=== PATIENT | female | born 1965 | race Caucasian/White ===

== ENCOUNTER → 2016-10-03 | Outpatient (CLI) | payer BC, OTHER | LOC: ECHO 11:17 | DX: C50.412 Malignant neoplasm of upper-outer quadrant of left female breast (principal); I34.0 Nonrheumatic mitral (valve) insufficiency; I07.1 Rheumatic tricuspid insufficiency; I27.2 Other secondary pulmonary hypertension | CPT/HCPCS: ECHO; 93306 ==

== ENCOUNTER → 2016-11-19 | Outpatient (CLI) | payer OTHER ==
[2016-11-19 14:48] LABS: HEMOGLOBIN 13.6 gm/dl (12.3-15.3); RED BLOOD COUNT 4.35 M/UL (4.00-5.10)
[2016-11-19 15:08] LABS: WHITE BLOOD COUNT 1.3 K/UL (4.5-11.0)
[2016-11-19 15:39] LABS: BUN/CREATININE RATIO 22 (0-10)
== END ==
LOC: LAB 13:50
PROVIDERS: Internal Medicine Hematology & Oncology
DX: C50.412 Malignant neoplasm of upper-outer quadrant of left female breast (principal); K76.9 Liver disease, unspecified; I51.9 Heart disease, unspecified; Z71.6 Tobacco abuse counseling
CPT/HCPCS: 36415; 80053; 85025

== ENCOUNTER 2016-11-20 14:40 | Emergency (ER) | payer OTHER ==
[2016-11-20 16:25] LABS: HEMOGLOBIN 14.8 gm/dl (12.3-15.3); RED BLOOD COUNT 4.75 M/UL (4.00-5.10)
[2016-11-20 16:40] LABS: BUN/CREATININE RATIO 18 (0-10)
[2016-11-20 16:41] LABS: WHITE BLOOD COUNT 3.1 K/UL (4.5-11.0)
== END 2016-11-20 20:57 | disposition home or self-care (01) ==
LOC: ER1 14:40
PROVIDERS: Emergency Medicine
DX: J40 Bronchitis, not specified as acute or chronic (principal); D72.819 Decreased white blood cell count, unspecified; D69.6 Thrombocytopenia, unspecified; F17.210 Nicotine dependence, cigarettes, uncomplicated; Z85.3 Personal history of malignant neoplasm of breast
CPT/HCPCS: 36415; 71010; 80053; 81001; 82550; 82553; 83874; 84484; 85025; 93005; 94664; 99285

== ENCOUNTER → 2020-11-29 | Outpatient (CLI) | payer OTHER ==
[~2020-11-29] MED LIST: BUSPIRONE HCL5 MG PO; IBUPROFEN600 MG PO; MOBIC15 MG PO
[2020-11-29 13:03] LABS: HEMOGLOBIN 14.3 gm/dl (12.3-15.3); RED BLOOD COUNT 4.6 M/UL (4.00-5.10); WHITE BLOOD COUNT 3.5 K/UL (4.5-11.0)
[2020-11-29 13:26] LABS: BUN/CREATININE RATIO 14 (0-10)
== END ==
LOC: LAB 12:03
PROVIDERS: Internal Medicine Gastroenterology
DX: D64.9 Anemia, unspecified (principal); K76.0 Fatty (change of) liver, not elsewhere classified; R10.9 Unspecified abdominal pain
CPT/HCPCS: 36415; 80053; 83540; 83550; 85025

== ENCOUNTER 2021-05-23 16:30 | Emergency (ER) | payer OTHER ==
[2021-05-23 18:27] LABS: HEMOGLOBIN 13.7 gm/dl (12.3-15.3); RED BLOOD COUNT 4.52 M/UL (4.00-5.10); WHITE BLOOD COUNT 3.5 K/UL (4.5-11.0)
[2021-05-23 18:49] LABS: BUN/CREATININE RATIO 15 (0-10)
[2021-05-23] MEDS ORDERED: MACROBID 100 M100 M1 PO (19:01)
[2021-05-23] MEDS ORDERED: IBUPROFEN600 MG PO (19:20)
== END 2021-05-23 21:44 | disposition home or self-care (01) ==
LOC: ER1 16:30
PROVIDERS: Nurse Practitioner
DX: N21.0 Calculus in bladder (principal); N39.0 Urinary tract infection, site not specified; E11.9 Type 2 diabetes mellitus without complications; I10 Essential (primary) hypertension; Z20.822 Contact with and (suspected) exposure to COVID-19
CPT/HCPCS: 72100; 80053; 81001; 85025; 87086; 99284; U0002

== ENCOUNTER → 2021-07-01 | Outpatient (CLI) | payer OTHER ==
[~2021-07-01] MED LIST changes: +MACROBID 100 M100 M1 PO
[2021-07-01 11:32] LABS: HEMOGLOBIN 14.5 gm/dl (12.3-15.3); RED BLOOD COUNT 4.64 M/UL (4.00-5.10); WHITE BLOOD COUNT 3.9 K/UL (4.5-11.0)
[2021-07-01 11:55] LABS: BUN/CREATININE RATIO 11 (0-10)
== END ==
LOC: LAB 11:03
PROVIDERS: Internal Medicine Gastroenterology
DX: K76.0 Fatty (change of) liver, not elsewhere classified (principal); R10.9 Unspecified abdominal pain; R10.11 Right upper quadrant pain; K74.60 Unspecified cirrhosis of liver
CPT/HCPCS: 36415; 80053; 85025; 86317

== ENCOUNTER 2021-08-13 18:36 | Emergency (ER) | payer OTHER | END 2021-08-13 22:57 | disposition home or self-care (01) | LOC: ER1 18:36 | DX: R09.81 Nasal congestion (principal); Z20.822 Contact with and (suspected) exposure to COVID-19; E11.9 Type 2 diabetes mellitus without complications; I10 Essential (primary) hypertension | CPT/HCPCS: 0240U; 99283 ==

== ENCOUNTER → 2021-12-16 | Outpatient (CLI) | payer OTHER | LOC: RAD 13:00 | DX: M54.2 Cervicalgia (principal); J20.9 Acute bronchitis, unspecified; R05.9 Cough, unspecified; M47.812 Spondylosis without myelopathy or radiculopathy, cervical region; M47.816 Spondylosis without myelopathy or radiculopathy, lumbar region | CPT/HCPCS: 71046; 72040; 72100 ==

== ENCOUNTER → 2022-01-27 | Outpatient (CLI) | payer OTHER | LOC: KOH-I 01-15 13:45 | DX: M50.222 Other cervical disc displacement at C5-C6 level (principal); M53.82 Other specified dorsopathies, cervical region; M25.78 Osteophyte, vertebrae; M48.02 Spinal stenosis, cervical region | CPT/HCPCS: 72141 ==

== ENCOUNTER → 2022-03-04 | Outpatient (CLI) | payer OTHER | LOC: KOH-I 15:17 | DX: R91.1 Solitary pulmonary nodule (principal) | CPT/HCPCS: 71250 ==